=== PATIENT | female | born 1960 | race Caucasian/White ===

== ENCOUNTER → 2016-11-05 | Outpatient (CLI) | payer MEDICARE, OTHER ==
[~2016-11-05] MED LIST: ARICEPT10 MG PO; ASPI325T6 PO; CLEOCIN HCL300 MG PO; FLEXERIL 1010 MG/TAB PO; GLUCOPHAGE500 MG/TAB PO; INDERAL LA160 MG PO; KEPPRA 500MG500 MG PO; KLONOPIN2 MG PO; LEVBID0.375 MG PO; LEXAPRO20 MG PO; LIPITOR 80MG80 MG PO; NAMENDA XR 28MG PO; NEURONTIN300 MG/CAP PO; NORCO 325 MG-101 TAB PO; NUVIGIL150 MG PO; PROTONIX 40MG T40 MG PO; THORAZINE 550 MG/TAB PO; TRICOR145 MG PO; ULTRAM 50MG TAB50 MG PO
== END ==
LOC: COL.VAS 11:15
DX: I65.23 Occlusion and stenosis of bilateral carotid arteries (principal); Z98.890 Other specified postprocedural states; Z86.73 Personal history of transient ischemic attack (TIA), and cerebral infarction without residual deficits

== ENCOUNTER → 2017-05-12 | Outpatient (CLI) | payer MEDICARE, OTHER | LOC: COL.RAD 10:38 | DX: Z86.73 Personal history of transient ischemic attack (TIA), and cerebral infarction without residual deficits (principal); Z98.890 Other specified postprocedural states | CPT/HCPCS: J7050; Q9967 ==

== ENCOUNTER 2017-07-17 10:13 | Inpatient (IN) | payer MEDICARE, OTHER ==
[~2017-07-17] VITALS: Ht 160 cm; Wt 78.6 kg
[2017-09-15] MEDS ORDERED: ROXICODONE 55 MG/TAB PO (10:54)
[2017-09-15] MEDS ORDERED: IRON18 MG1 PO (10:55)
[2017-09-15] MEDS ORDERED: VITAMIN C500 MG PO (10:55)
[2017-09-15] MEDS ORDERED: FOLIC ACID 40400 MCG PO ×2 (10:55→10:59)
[2017-09-15] MEDS ORDERED: ELIQUIS 5MG PO (10:55)
[2017-09-15] MEDS ORDERED: NIFEREX TABLET1 EACH PO (10:56)
[2017-09-15] MEDS ORDERED: NAMENDA 10MG TA10 MG PO (10:59)
[2017-09-15] MEDS ORDERED: LEVEMIR FLEX100 U/ML SQ (10:59)
[2017-09-15] MEDS ORDERED: LIPITOR 10MG10 MG PO (11:00)
[2017-09-15] MEDS ORDERED: PROVIGIL 100MG100 MG PO (11:00)
[2017-09-15] MEDS ORDERED: ASPIRIN E.C. 8181 MG PO (11:00)
[2017-09-15] MEDS ORDERED: FLEXERIL5 MG PO (11:01)
[2017-09-16] VITALS (11 sets, daily range): BP systolic 82–105; BP diastolic 42–59; PULSE 58–78; TEMP 98–98.5
[2017-09-17 00:21] VITALS: BP 99/45; PULSE 84; TEMP 98.2
[2017-09-17 03:57] VITALS: BP 107/52; PULSE 81; TEMP 98.2
[2017-09-17 06:45] LABS: HEMOGLOBIN 10.9 g/dl (12.5-16.0)
[2017-09-17 06:46] LABS: HEMATOCRIT 34.2 % (37.0-47.0)
[2017-09-17 08:00] VITALS: BP 115/69; PULSE 71; TEMP 98.6
[2017-09-17 11:24] VITALS: BP 122/63; PULSE 72; TEMP 98.6
== END 2017-09-17 12:35 | disposition home or self-care (01) | DRG 470 ==
LOC: SURG 09-16 06:40 → JCC 09-16 09:45 → SURG 09-17 12:35
PROVIDERS: Orthopaedic Surgery; Physician Assistant
PROC: 0SRC0J9 Replacement of Right Knee Joint with Synthetic Substitute, Cemented, Open Approach (ICD-10-PCS; principal; 2017-09-16 09:45)
DX: M17.11 Unilateral primary osteoarthritis, right knee (principal); F31.30 Bipolar disorder, current episode depressed, mild or moderate severity, unspecified; I10 Essential (primary) hypertension; E78.00 Pure hypercholesterolemia, unspecified; E11.42 Type 2 diabetes mellitus with diabetic polyneuropathy; G43.909 Migraine, unspecified, not intractable, without status migrainosus; R29.6 Repeated falls; M79.7 Fibromyalgia; Z86.73 Personal history of transient ischemic attack (TIA), and cerebral infarction without residual deficits
CPT/HCPCS: A9284; C1713; C1776; J0171; J0690; J1100; J1815; J2250; J2405; J2704; J7120

== ENCOUNTER → 2017-09-21 | Outpatient (CLI) | payer MEDICARE, OTHER ==
[~2017-09-21] MED LIST changes: +ASPIRIN E.C. 8181 MG PO; +ELIQUIS 5MG PO; +FLEXERIL5 MG PO; +FOLIC ACID 40400 MCG PO; +IRON18 MG1 PO; +LEVEMIR FLEX100 U/ML SQ; +LIPITOR 10MG10 MG PO; +NAMENDA 10MG TA10 MG PO; +NIFEREX TABLET1 EACH PO; +PROVIGIL 100MG100 MG PO; +ROXICODONE 55 MG/TAB PO; +VITAMIN C500 MG PO
== END ==
LOC: COL.VAS 13:30
DX: M79.89 Other specified soft tissue disorders (principal); M79.604 Pain in right leg; Z96.651 Presence of right artificial knee joint

== ENCOUNTER → 2017-11-12 | Outpatient (CLI) | payer MEDICARE, OTHER | LOC: COL.RAD 13:00 | DX: Z01.812 Encounter for preprocedural laboratory examination (principal); I65.23 Occlusion and stenosis of bilateral carotid arteries; I63.9 Cerebral infarction, unspecified | CPT/HCPCS: Q9967 ==

== ENCOUNTER → 2018-04-16 | Outpatient (CLI) | payer MEDICARE, OTHER | LOC: COL.RAD 08:01 | DX: I65.23 Occlusion and stenosis of bilateral carotid arteries (principal); Z98.890 Other specified postprocedural states | CPT/HCPCS: Q9967 ==

== ENCOUNTER 2019-10-11 08:51 | Outpatient (CLI) | payer MEDICARE, OTHER ==
[~2019-10-11] VITALS: Ht 160 cm; Wt 83.3 kg
[2019-10-11] MEDS ORDERED: BUSPAR5 MG PO (09:11)
[2019-10-11] MEDS ORDERED: FLEXERIL 1010 MG/TAB PO (09:15)
[2019-10-11] MEDS ORDERED: ELIQUIS 5MG PO ×2 (09:16→09:17)
[2019-10-11] MEDS ORDERED: IFEREX 150 FORT1 CAP PO (09:20)
[2019-10-11] MEDS ORDERED: BOTOX200 U (09:22)
[2019-10-11] MEDS ORDERED: PHENERGAN 25 TA25 MG PO (09:23)
[2019-10-11] MEDS ORDERED: RESTORIL 1515 MG/CAP PO (09:24)
[2019-10-11] MEDS ORDERED: B-121000 MCG PO ×2 (09:25→09:26)
[2019-10-11 09:27] VITALS: BP 127/75; PULSE 85; TEMP 99
[2019-10-11 09:31] VITALS: BP 127/73; PULSE 85; TEMP 99
[2019-10-11 10:04] VITALS: BP 141/93; PULSE 85
--- NOTE | 2019-10-11 10:10 | NUR ---
SEE MERGE DOCUMENTATION FOR MEDICATION ADMINISTRATION AND INTRA/POST PROCEDURE SEDATION.
[2019-10-11 11:07] VITALS: BP 125/84; PULSE 81; TEMP 98.9
[2019-10-11] MEDS ORDERED: CLEOCIN HCL300 MG PO (11:29)
== END 2019-10-11 11:37 | disposition home or self-care (01) ==
LOC: COL.CAR 08:51
DX: I48.0 Paroxysmal atrial fibrillation (principal)
CPT/HCPCS: J0690; J1644; J2250; J3010; J7040

== ENCOUNTER 2020-10-10 14:54 | Inpatient (IN) | payer MEDICARE, OTHER ==
[~2020-10-10 14:54] MED LIST changes: +B-121000 MCG PO; +BOTOX200 U; +BUSPAR5 MG PO; +IFEREX 150 FORT1 CAP PO; +PHENERGAN 25 TA25 MG PO; +RESTORIL 1515 MG/CAP PO
[2020-10-11 09:07] LABS: BASO # 0.1 (0.0-0.2); BASO % 0.6 % (0.0-2.0); EOS # 0.1 (0.0-0.7); EOS % 1.4 % (0-4.0); GRAN # 6.2 (1.4-6.5); GRAN % 60.9 % (42.2-75.2); HEMATOCRIT 42.8 % (37.0-47.0); LYMPH % 28.9 % (20.0-51.0); MEAN CELL VOLUME 92 fl (80.0-100.0); MEAN CORPUSCULAR HEMOGLOBIN 30 pg (27.0-31.0); MEAN CORPUSCULAR HGB CONC 33 g/dl (33.0-37.0); MEAN PLATELET VOLUME 9.4 fl (7.4-10.4); MONO # 0.8 (0.1-0.6); MONO % 7.8 % (1.7-9.3); PLATELET COUNT 332 K/mm3 (130-400); RED BLOOD COUNT 4.65 M/mm3 (4.10-5.30); REDCELL DISTRIBUTION WIDTH-CV 12.9 % (11.5-14.5)
[2020-10-11 09:17] LABS: PROTHROMBIN TIME 10.7 SECONDS (9.7-12.8)
[2020-10-11 09:21] LABS: MAGNESIUM 1.9 mg/dL (1.6-2.3)
[2020-10-11 09:23] LABS: ALBUMIN 4.5 gm/dL (3.5-5.0); BILIRUBIN,TOTAL 0.2 mg/dL (0.0-1.0); CALCIUM 9.8 mg/dL (8.4-10.2); CREATININE, serum 0.57 (0.52-1.25); TOTAL PROTEIN 7.3 gm/dL (6.4-8.2)
--- NOTE | 2020-10-11 10:00 | NUR ---
Admission assessment completed, alert/oriented, vital signs stable, denies pain or discomfort, heart regular/ SR on tele, hx paroxysmal A.fib and here to initiate Sotalol, EKG done, labs drawn, meds/allergies/pharm reviewed and updated, notified caridology of her arribval, IV started to right forearm, present, dneies needs at this time
[2020-10-11 11:10] VITALS: BP 118/95; PULSE 76; TEMP 98.2
[2020-10-11 12:12] VITALS: BP 118/95; PULSE 76; TEMP 98.2
[2020-10-11 16:09] VITALS: BP 128/81; PULSE 77; TEMP 98
[2020-10-11 20:00] VITALS: BP 136/71; PULSE 78; TEMP 98.4
[2020-10-12 01:36] VITALS: BP 97/56; PULSE 71; TEMP 97.6
[2020-10-12 04:47] VITALS: BP 117/68; PULSE 75; TEMP 98.2
[2020-10-12 06:59] LABS: BASO # 0.1 (0.0-0.2); BASO % 0.7 % (0.0-2.0); EOS # 0.2 (0.0-0.7); GRAN # 5.5 (1.4-6.5); GRAN % 54.2 % (42.2-75.2); HEMATOCRIT 41.2 % (37.0-47.0); HEMOGLOBIN 13.3 g/dl (12.5-16.0); LYMPH # 3.4 (1.2-3.4); LYMPH % 33.2 % (20.0-51.0); MEAN CELL VOLUME 94 fl (80.0-100.0); MEAN CORPUSCULAR HEMOGLOBIN 30 pg (27.0-31.0); MEAN CORPUSCULAR HGB CONC 32 g/dl (33.0-37.0); MEAN PLATELET VOLUME 9.9 fl (7.4-10.4); MONO % 9.5 % (1.7-9.3); PLATELET COUNT 337 K/mm3 (130-400); REDCELL DISTRIBUTION WIDTH-CV 12.8 % (11.5-14.5)
[2020-10-12 07:00] LABS: INR 0.9 (0.8-3.0); PROTHROMBIN TIME 10.1 SECONDS (9.7-12.8)
[2020-10-12 07:03] LABS: CREATININE, serum 0.55 (0.52-1.25); POTASSIUM 3.9 mmol/L (3.4-5.0)
[2020-10-12 07:23] VITALS: BP 136/87; PULSE 74; TEMP 98.4
--- NOTE | 2020-10-12 07:42 | NUR ---
Patient awake and talking on the phone. Brought fresh water, tea, and coffee to the patient. Patient denies any chest pain, SOA, discomfort, or further needs at this time. Will continue to monitor. Call light in reach.
--- NOTE | 2020-10-12 08:00 | NUR ---
Scheduled medication given, shift assessment preformed. VSS. Does not C/O any pain or discomfort. Will continue to monitor. Call light in reach.
[2020-10-12 11:25] VITALS: BP 97/62; PULSE 71; TEMP 98.3
--- NOTE | 2020-10-12 15:08 | NUR ---
Isotope Technician met with patient to discuss discharge planning. Patient lives in [place] with her , Vinay (ph#[phone]) and sees Dr. Ricci for primary care. Patient obtains medications from [facility] in [place] with no difficulties. Patient has a cane and walker at home from her previous knee surgeries, but normally does not use them. Patient reports independence with ADLS, however does not drive as she had a stroke about 7 years ago. Patient advised that her , Vinay is her DPOA-HC. Patient plans to return home upon discharge. Discharge Plan: Home with
[2020-10-12 17:00] VITALS: BP 104/55; PULSE 64; TEMP 98.5
--- NOTE | 2020-10-12 18:00 | NUR ---
Patient has had an uneventful day. Has not C/O any pain, discomfort, or SOA. VSS. Report given to PARRIS Lorenz. Call light in reach.
--- NOTE | 2020-10-12 20:55 | NUR ---
Patient is alert, awake and cooperative. She is ambulating in her room without any issues. She is expecting to be discharge tomorrow. No complains of pain or SOB. Denies palpitaion which is the main issue for her.
[2020-10-13 00:04] VITALS: BP 96/52; PULSE 67; TEMP 97.6
[2020-10-13 04:17] VITALS: BP 97/58; PULSE 66; TEMP 98.1
[2020-10-13 07:20] LABS: INR 0.9 (0.8-3.0); PROTHROMBIN TIME 10.3 SECONDS (9.7-12.8)
[2020-10-13 07:59] VITALS: BP 114/63; PULSE 78; TEMP 98.7
--- NOTE | 2020-10-13 08:57 | NUR ---
Pt awake and alert upon entry, sitting by window. No C/O of pain at this time. Shift assessmentas complete, left Pt in room, call light in reach.
[2020-10-13] MEDS ORDERED: BETAPACE 80MG80 MG PO (11:14)
--- NOTE | 2020-10-13 12:17 | NUR ---
Pt discharged to home, discussed discharge information with Pt. Escorted Pt to entrance, assisted Pt into vehicle, Pt left with family via private transportation.
== END 2020-10-13 12:00 | disposition home or self-care (01) | DRG 310 ==
LOC: MEDICAL 10-11 08:14
PROVIDERS: ADMIT Internal Medicine Cardiovascular Disease
DX: I48.0 Paroxysmal atrial fibrillation (principal); I10 Essential (primary) hypertension; E78.5 Hyperlipidemia, unspecified; F17.210 Nicotine dependence, cigarettes, uncomplicated; Z88.1 Allergy status to other antibiotic agents; Z88.0 Allergy status to penicillin; Z88.2 Allergy status to sulfonamides; Z88.6 Allergy status to analgesic agent; Z88.8 Allergy status to other drugs, medicaments and biological substances; Z86.73 Personal history of transient ischemic attack (TIA), and cerebral infarction without residual deficits; Z79.82 Long term (current) use of aspirin; Z79.01 Long term (current) use of anticoagulants
CPT/HCPCS: J1815

== ENCOUNTER 2023-05-14 08:20 | Day surgery (SDC) | payer MEDICARE, OTHER ==
[2023-05-14] VITALS (7 sets, daily range): BP systolic 113–133; BP diastolic 77–99; PULSE 66–70; TEMP 98.8
[~2023-05-14] VITALS: Ht 160 cm; Wt 79.7 kg
[~2023-05-14 08:20] MED LIST changes: +BETAPACE 80MG80 MG PO; +KLONOPIN 1MG1 MG PO; -KLONOPIN2 MG PO
[2023-05-14] MEDS ORDERED: COREG12.5 MG PO (09:26)
[2023-05-14] MEDS ORDERED: HYGROTON 2525 MG/TAB PO (09:27)
[2023-05-14] MEDS ORDERED: ROBAXIN 75750 MG/TAB PO (09:29)
[2023-05-14] MEDS ORDERED: AFREZZA12 UNIT IH (09:31)
[2023-05-14] MEDS ORDERED: KEPPRA 500MG500 MG PO (09:32)
[2023-05-14] MEDS ORDERED: NIFEREX TABLET1 EACH PO (09:32)
[2023-05-14] MEDS ORDERED: COZAAR100 MG PO (09:33)
[2023-05-14] MEDS ORDERED: NAMENDA 10MG TA10 MG PO (09:33)
[2023-05-14] MEDS ORDERED: MOBIC15 MG PO (09:34)
[2023-05-14] MEDS ORDERED: K-TAB10 PO (09:35)
[2023-05-14] MEDS ORDERED: UBRELVY50 MG PO (09:36)
[2023-05-14] MEDS ORDERED: VITAMIN D31000 IU PO (09:39)
--- NOTE | 2023-05-14 09:56 | NUR ---
Dr Schwartz and his nurse Zari were aware pt had taken her usual clonazepam 0.5 mg tab this morning prior to ativan administration. Dr Schwartz stated he was aware and was fine for pt to take ativan after consent was signed. Pt states she has had so many surgeries in past, she now experiences severe anxiety with medical procedures.
--- NOTE | 2023-05-14 10:59 | NUR ---
Refer to merge hemodynamic report for procedural sedation/notes
[2023-05-14] MEDS ORDERED: CLEOCIN HCL300 MG PO (12:53)
--- NOTE | 2023-05-14 13:06 | NUR ---
DC instructions reviewed with pt and , both express understanding. Dressing remains clean, dry and intact. Pt denies discomofort. IV DC'd, site wrapped with coban. Pt is steady on feet to restroom. She's sipped coffee, denied desire for food. She is assisted out to 's car by wheelchair with belongings.
== END 2023-05-14 13:06 | disposition home or self-care (01) ==
LOC: COL.CAR 08:20
DX: I48.0 Paroxysmal atrial fibrillation (principal); I10 Essential (primary) hypertension; E78.2 Mixed hyperlipidemia; I77.9 Disorder of arteries and arterioles, unspecified; Z79.01 Long term (current) use of anticoagulants; Z86.73 Personal history of transient ischemic attack (TIA), and cerebral infarction without residual deficits
CPT/HCPCS: C1764; J2250; J3010; J3370; J7050